=== PATIENT | male | born 1935 | race Caucasian/White ===

== ENCOUNTER → 2019-10-18 | Outpatient (CLI) | payer MEDICARE, BC ==
[~2019-10-18] MED LIST: CETI10TA24 PO; FURO40TA4 PO; OXYC1TAB19 PO; PANT20TA2 PO; SUCR1ORA5 PO; TAMS0.4C97 PO
--- NOTE | 2019-10-18 18:47 | RAD ---
EXAM: PET W CT SKULL TO MIDTHIGH EXAM DATE: 10/18/2019 INDICATION: Pulmonary nodule RADIOPHARMACEUTICAL: 14.0 mCi of F-18 Fluorodeoxyglucose (FDG) I.V. via the right antecubital fossa. TECHNIQUE: Patient weight: 135 pounds. Following at least four-hour fasting, the patient's blood glucose was 114 mg/dl. Approximately 1 hour after administration of FDG, overlapping emission scanning was performed from the orbital meatal line through the pelvis. A low-dose CT was performed for attenuation correction purposes and anatomic localization. Fused images of PET and CT were reviewed. Any standardized uptake values (SUV) reported are maximum values within a volume region of interest, expressed in gm/ml. COMPARISON: Chest CT without IV contrast of 09/17/2019 FINDINGS: PET: Previously reported noncalcified round anteromedial right upper lobe pulmonary nodule demonstrates abnormal FDG activity along its medial border to a max SUV of 3.38. This compares with a background mediastinal activity of 1.55. There is otherwise no abnormal FDG uptake in the included field of view suspicious for malignancy, including at T7 where a faint lytic focus posteriorly was described on the prior examination.. CT: Upper lobe centrilobular emphysema and lower lobe predominant interlobular septal thickening and groundglass attenuation persists in the lungs. No pleural effusion. No thoracic adenopathy on noncontrast CT. Abdomen and pelvis show aortic calcifications and mildly enlarged prostate, detail limited by respiratory motion artifact. IMPRESSION: The right upper lobe lung mass abutting the mediastinum demonstrates abnormal FDG uptake primarily along its medial border. Cannot exclude lung cancer. Electronically signed by: Sia Mccormack MD (10/18/2019 6:44 PM) [id number]
== END ==
LOC: PETSC 11:48
PROVIDERS: ATTEND Family Medicine
DX: C34.90 Malignant neoplasm of unspecified part of unspecified bronchus or lung (principal); G89.4 Chronic pain syndrome; D62 Acute posthemorrhagic anemia; R91.8 Other nonspecific abnormal finding of lung field
CPT/HCPCS: 78815; A9552